=== PATIENT | female | born 1970 | race Caucasian/White ===

== ENCOUNTER 2019-02-15 15:05 | Inpatient (IN) ==
[2019-02-15] MEDS ORDERED: KETOROLAC 10 MG TABLET PO PRN (15:58)
[2019-02-15] MEDS ORDERED: BISACODYL 5 MG TABLET PO PRN (15:58)
[2019-02-15] MEDS ORDERED: ACETAMINOPHEN 325 MG TABLET PO PRN (15:58)
[2019-02-15] MEDS ORDERED: DIAZEPAM 5 MG TABLET PO PRN (16:01)
[2019-02-15] MEDS ORDERED: tiZANidine 4 MG TABLET PO PRN (16:01)
[2019-02-15] MEDS ORDERED: PROMETHAZINE 25 MG TABLET PO PRN ×2 (16:01)
[2019-02-15 16:31] LABS: Basophils % 0.3 % (0.0-0.8); Eosinophils # 0.2 10*3/uL (0.0-0.87); Eosinophils % 1.8 % (0.00-10.9); Hemoglobin 13.7 GM/DL (12.0-16.0); Immature Granulocytes % 0.4 %; Immature Granulocytes Absolute 0.06 #; Lymphocytes # 2.6 10*3/uL (1.4-4.0); Lymphocytes % 18.7 % (21.3-54.2); Mean Corpuscular HGB Conc 31.1 GM/DL (32-36); Mean Corpuscular Hemoglobin 27 PG (27-34); Mean Corpuscular Volume 87.3 FL (87-102); Mean Platelet Volume 11.8 FL (9.6-12.0); Monocytes # 0.7 10*3/uL (0.11-0.8); Monocytes % 4.9 % (1.7-12.7); Neutrophils # 10.1 10*3/uL (1.4-7.4); Neutrophils % 73.9 % (38.7-73.9); Platelet Count 226 T/CUMM (130-400); Red Blood Count 5.04 MC/CUMM (3.8-5.5); Red Cell Distribution Width 13.6 % (9.3-17.3); White Blood Count 13.7 T/CUMM (4-12)
[2019-02-15 16:50] LABS: Albumin 3.2 G/DL (3.4-5.0); Bilirubin,Total 0.4 MG/DL (0.2-1.0); Calcium 8.8 MG/DL (8.5-10.1); Osmolality,Calculated 275.5 MOS/KG (273-304); Potassium 4.3 MMOL/L (3.5-5.1); Total Protein 7.9 G/DL (6.4-8.3)
[2019-02-15] MEDS: HYDROmorphone 2 MG/1 ML VIAL IV PRN ×2 (16:52→21:48)
[2019-02-15] MEDS: PIPERACILLIN/TAZOBACTAM 3,375 MG in SODIUM CHLORIDE 0.9% 100 ML IV SCH (16:52)
[2019-02-15] MEDS: ONDANSETRON 4 MG/2 ML VIAL IV PRN (16:53)
[2019-02-15] MEDS: GABAPENTIN 400 MG CAPSULE PO SCH (21:48)
[2019-02-16] MEDS: PIPERACILLIN/TAZOBACTAM 3,375 MG in SODIUM CHLORIDE 0.9% 100 ML IV SCH ×2 (00:36→09:47)
[2019-02-16 04:04] LABS: Basophils % 0.3 % (0.0-0.8); Eosinophils # 0.2 10*3/uL (0.0-0.87); Eosinophils % 2.1 % (0.00-10.9); Hematocrit 41.9 VOL% (35.7-47.0); Hemoglobin 13.2 GM/DL (12.0-16.0); Immature Granulocytes % 0.4 %; Immature Granulocytes Absolute 0.05 #; Lymphocytes # 2.6 10*3/uL (1.4-4.0); Lymphocytes % 22.1 % (21.3-54.2); Mean Corpuscular HGB Conc 31.5 GM/DL (32-36); Mean Corpuscular Hemoglobin 27 PG (27-34); Mean Corpuscular Volume 86.4 FL (87-102); Mean Platelet Volume 11.9 FL (9.6-12.0); Monocytes # 0.8 10*3/uL (0.11-0.8); Monocytes % 6.8 % (1.7-12.7); Neutrophils # 7.9 10*3/uL (1.4-7.4); Neutrophils % 68.3 % (38.7-73.9); Platelet Count 217 T/CUMM (130-400); Red Blood Count 4.85 MC/CUMM (3.8-5.5); Red Cell Distribution Width 13.6 % (9.3-17.3); White Blood Count 11.6 T/CUMM (4-12)
[2019-02-16] MEDS: ONDANSETRON 4 MG/2 ML VIAL IV PRN (04:46)
[2019-02-16] MEDS: HYDROmorphone 2 MG/1 ML VIAL IV PRN ×2 (05:59→12:57)
[2019-02-16] MEDS ORDERED: CARVEDILOL 12.5 MG TABLET PO SCH (06:00)
[2019-02-16] MEDS ORDERED: LIDOCAINE 1%/EPI INJ 20 ML VIAL ONE (07:12)
[2019-02-16] MEDS ORDERED: ONDANSETRON 4 MG/2 ML VIAL ONE ×2 (07:43→07:53)
[2019-02-16] MEDS ORDERED: HYDROmorphone 2 MG/1 ML VIAL ONE (07:43)
[2019-02-16] MEDS ORDERED: PROPOFOL 200 MG/20 ML VIAL IV ONE (07:52)
[2019-02-16] MEDS ORDERED: fentaNYL 100 MCG/2 ML VIAL ONE (07:52)
[2019-02-16] MEDS ORDERED: ONDANSETRON 4 MG/2 ML VIAL IV PRN (07:53)
[2019-02-16] MEDS ORDERED: HYDROmorphone 2 MG/1 ML VIAL IV PRN (07:53)
[2019-02-16] MEDS ORDERED: SODIUM CHLORIDE 0.9% 100 ML IV ONE (07:53)
[2019-02-16] MEDS ORDERED: MIDAZOLAM 2 MG/2 ML VIAL ONE (07:53)
[2019-02-16] MEDS: GABAPENTIN 400 MG CAPSULE PO SCH ×2 (09:00→14:58)
[2019-02-16] MEDS ORDERED: PANTOPRAZOLE 40 MG TABLET PO SCH (09:00)
[2019-02-16 15:41] VITALS: BP 132/68
== END 2019-02-16 15:46 | disposition home health service (06) | DRG 364 ==
LOC: N.ED 15:05 → N.EDINP 15:58 → N.3E 16:15
PROVIDERS: ADMIT Surgery; ATTEND Surgery

== ENCOUNTER 2020-12-13 23:43 | Observation (INO) ==
[2020-12-14] MEDS ORDERED: methylPREDNISolone SOD SUC 125 MG/2 ML VIAL IV STA (00:11)
[2020-12-14] MEDS ORDERED: NITROGLYCERIN 2% OINT 1 INCH/GM PACK TOP STA (00:11)
[2020-12-14] MEDS ORDERED: MORPHINE 4 MG/1 ML VIAL IV STA (00:11)
[2020-12-14] MEDS ORDERED: ALUM/MAG/SIMETH/LIDO VISC 1:1 30 ML BOTTLE PO STA (00:11)
[2020-12-14] MEDS ORDERED: ONDANSETRON 4 MG/2 ML VIAL IV STA (00:11)
[2020-12-14] MEDS ORDERED: ALBUTEROL/IPRATROPIUM 3 ML NEB RESP TX STA (00:12)
[2020-12-14 00:45] LABS: PT Patient Result 10.4 SECS (9.8-11.9)
[2020-12-14 00:50] LABS: Bilirubin,Urine Negative (Negative); Blood, Urine Small mg/dL (Negative); Glucose,Urine (UA) Negative (Negative); Ketones,Urine Negative (Negative); Nitrite,Urine Negative (Negative); Protein,Urine Negative; RBC,Urine 37 /HPF (0-4); Squamous Epithelial Cell,Urine Few /HPF (0-10); Urine Appearance Slightly Hazy (Clear); Urine Color Straw (Yellow); Urine Specific Gravity 1.005 (1.001-1.035); Urine Urobilinogen < 2.0 EU/DL (0.2-1.0); WBC,Urine 41 /HPF (0-6)
[2020-12-14 00:51] LABS: Alanine Aminotransferase 37 U/L (13-56); Albumin 3.2 G/DL (3.4-5.0); Alkaline Phosphatase 164 U/L (45-117); Aspartate Amino Transferase 27 U/L (0-37); Bilirubin,Total < 0.39 MG/DL (0.2-1.0); Blood Urea Nitrogen 13 MG/DL (7-18); Calcium 9.7 MG/DL (8.5-10.1); Carbon Dioxide 28 MMOL/L (21-32); Estimated Glom Filtration Rate 94 ML/MIN; Glucose 104 MG/DL (74-106); Osmolality,Calculated 272.8 MOS/KG (273-304); Potassium 4.1 MMOL/L (3.5-5.1); Sodium 137 MMOL/L (136-145); Total Protein 8.8 G/DL (6.4-8.3)
[2020-12-14 01:07] LABS: Basophils # 0.1 10*3/uL (0.0-0.2); Basophils % 0.4 % (0.0-0.8); Eosinophils # 0.4 10*3/uL (0.0-0.87); Eosinophils % 2.6 % (0.00-10.9); Hematocrit 45.4 VOL% (35.7-47.0); Hemoglobin 14.1 GM/DL (12.0-16.0); Immature Granulocytes % 0.6 %; Immature Granulocytes Absolute 0.08 #; Lymphocytes # 3.8 10*3/uL (1.4-4.0); Lymphocytes % 27.2 % (21.3-54.2); Mean Corpuscular HGB Conc 31.1 GM/DL (32-36); Mean Corpuscular Volume 88.5 FL (87-102); Mean Platelet Volume 12.1 FL (9.6-12.0); Monocytes % 4.5 % (1.7-12.7); Neutrophils % 64.7 % (38.7-73.9); Platelet Count 252 T/CUMM (130-400); Red Blood Count 5.13 MC/CUMM (3.8-5.5); Red Cell Distribution Width 13.2 % (9.3-17.3); White Blood Count 13.8 T/CUMM (4-12)
[2020-12-14 01:18] LABS: Barbiturates Screen,Urine Negative (Negative); Benzodiazepines Screen,Urine Negative (Negative); Cannabinoid Screen,Urine Positive (Negative); Opiate Screen,Urine Positive (Negative); Phencyclidine Screen,Urine Negative (Negative)
[2020-12-14] MEDS ORDERED: cefTRIAXone 1,000 MG in SODIUM CHLORIDE 0.9% 100 ML IV STA (01:22)
[2020-12-14] MEDS ORDERED: DEXTROSE 50% 25 GM/50 ML VIAL IV PRN (01:29)
[2020-12-14] MEDS ORDERED: GLUCAGON 1 MG VIAL IM PRN (01:29)
[2020-12-14 02:08] LABS: Risk Ratio 7.84; Thyroid Stimulating Hormone 1.99 uIU/ml (0.358-3.74); VLDL CHOLESTEROL 80.4 MG/DL
[2020-12-14] MEDS ORDERED: MORPHINE 4 MG/1 ML VIAL IV PRN (06:00)
[2020-12-14 07:28] LABS: Troponin I < 0.015 NG/ML (0.00-0.045)
[2020-12-14 11:43] VITALS: BP 135/63
== END 2020-12-14 13:13 | disposition home or self-care (01) ==
LOC: N.ED 23:43 → N.EDINP 23:43 → N.3E 12-14 04:26
PROVIDERS: ADMIT Internal Medicine Geriatric Medicine; ATTEND Internal Medicine Geriatric Medicine